=== PATIENT | female | born 1980 | race Caucasian/White ===

== ENCOUNTER 2017-08-24 15:34 | Emergency (ER) | payer OTHER, MEDICAID ==
[~2017-08-24] VITALS: Ht 172.7 cm; Wt 95.3 kg
[2017-08-24] MEDS ORDERED: OXYC40TA46 (15:58)
[2017-08-24] MEDS ORDERED: NORT75CA (15:58)
[2017-08-24] MEDS ORDERED: HYDR-700 (15:58)
[2017-08-24] MEDS ORDERED: OXYC-465 (15:58)
[2017-08-24] MEDS ORDERED: ZOLP10TA5 (15:58)
[2017-08-24] MEDS ORDERED: CLONAZEPAM (15:58)
[2017-08-24] MEDS ORDERED: ONDANSETRON 4 MG (ZOFRAN) ORAL DISSOLVE TAB SL STA (16:17)
[2017-08-24] MEDS ORDERED: ACETAMINOPHEN 325 MG TABLET/CAPLET (TYLENOL) PO STA (16:17)
--- NOTE | 2017-08-24 16:57 | Diagnostic Imaging Report ---
INDICATION: Chest pain. COMPARISON: None. Frontal and lateral views of the chest demonstrate questionable developing infiltrate in the right middle lobe. The left lung is clear. The heart is normal. Mediastinum is not widened. There is no pneumothorax or effusion. Visualized osseous structures are normal. IMPRESSION: Infiltrate in the right middle lobe, possibly pneumonia. If there is a history of trauma, this also could represent contusion. Please correlate clinically. Dictated by: Dictated on workstation # [id number]
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
[2017-08-24 18:23] VITALS: BP 117/75
== END 2017-08-24 18:22 | disposition home or self-care (01) ==
LOC: ER 15:36
DX: R07.89 Other chest pain (principal); Z90.710 Acquired absence of both cervix and uterus; V43.52XA Car driver injured in collision with other type car in traffic accident, initial encounter; Y92.410 Unspecified street and highway as the place of occurrence of the external cause
CPT/HCPCS: 71046; 71250